=== PATIENT | male | born 1970 | race Caucasian/White ===

== ENCOUNTER 2023-06-03 10:41 | Emergency (ER) | payer MEDICAID, OTHER ==
[~2023-06-03] VITALS: Ht 193 cm; Wt 100.0 kg
[2023-06-03] MEDS ORDERED: SODIUM CHLORIDE 0.9% 1,000 ML IV ONE (12:15)
[2023-06-03 13:20] LABS: Basophils # (auto) 0 10 ^3/uL (0-0.2); Basophils % (auto) 0.5 % (0.0-2.0); Eosinophils # (auto) 0 10 ^3/uL (0-0.8); Eosinophils % (auto) 0.3 % (0.0-7.0); Hematocrit 51.6 % (41.0-53.0); Hemoglobin 17.6 g/dL (13.5-17.5); Lymphocytes # (auto) 1.2 10 ^3/uL (0.4-5.4); Lymphocytes % (auto) 13.1 % (10.0-50.0); Mean Corpuscular Hemoglobin 30.8 pg (28.0-32.0); Mean Corpuscular Hgb Conc. 34.1 g/dL (32.0-36.0); Mean Corpuscular Volume 90.3 fL (80.0-100.0); Monocytes # (auto) 1.2 10 ^3/uL (0-1.3); Monocytes % (auto) 12.9 % (0.0-12.0); Neutrophils # (auto) 6.7 10 ^3/uL (1.6-8.6); Neutrophils % (auto) 73.2 % (37.0-80.0); Red Blood Cells 5.71 10^6/uL (4.5-5.90); Red Cell Distribution Width 13.4 % (11.8-14.3); White Blood Cell 9.2 10^3/uL (4.4-10.8)
[2023-06-03 13:33] LABS: Albumin 3.6 g/dL (3.4-5.0); Calcium 9.1 mg/dL (8.5-10.1); Potassium 4.4 mmol/L (3.5-5.1)
[2023-06-03 13:35] LABS: BUN/Creatinine Ratio 17.1 (10.0-20.0)
[2023-06-03 13:57] LABS: Total Protein 8.1 g/dL (6.4-8.2)
[2023-06-03] MEDS ORDERED: ZOFR4T PO (14:00)
[2023-06-03 14:41] VITALS: BP 148/89
== END 2023-06-03 14:48 | disposition home or self-care (01) ==
LOC: ER 10:41
DX: B34.9 Viral infection, unspecified (principal); E86.0 Dehydration; E11.9 Type 2 diabetes mellitus without complications; I10 Essential (primary) hypertension; Z20.822 Contact with and (suspected) exposure to COVID-19
CPT/HCPCS: 36415; 70450; 71046; 80053; 82962; 85025; 87426; 96360; 99284; J7030

== ENCOUNTER 2023-12-16 06:27 | Emergency (ER) | payer MEDICAID ==
[~2023-12-16] VITALS: Ht 182.9 cm; Wt 102.7 kg
[~2023-12-16 06:27] MED LIST: ZOFR4T PO
[2023-12-16] MEDS ORDERED: AZEL0.1S (08:05)
[2023-12-16] MEDS ORDERED: BENZ100C97 PO (08:05)
[2023-12-16] MEDS ORDERED: NABU-72 PO (08:05)
[2023-12-16 08:14] VITALS: BP 135/86; PULSE 107; RESP 16; TEMP 97.8; O2SAT 94
== END 2023-12-16 08:16 | disposition home or self-care (01) ==
LOC: ER 06:27
DX: J06.9 Acute upper respiratory infection, unspecified (principal); B97.89 Other viral agents as the cause of diseases classified elsewhere; R05.9 Cough, unspecified; I10 Essential (primary) hypertension; E11.9 Type 2 diabetes mellitus without complications; Z79.899 Other long term (current) drug therapy
CPT/HCPCS: 71046

== ENCOUNTER 2025-08-03 17:01 | Emergency (ER) | payer OTHER, MEDICAID ==
[~2025-08-03] VITALS: Ht 193 cm; Wt 105.8 kg
[~2025-08-03 17:01] MED LIST changes: +AZEL0.1S; +BENZ100C97 PO; +NABU-72 PO
--- NOTE | 2025-08-03 18:34 | ED.PDOC ---
HPI Comments 55-year-old male presents to the ED chief complaint left great toe injury. Patient states. His left toe injuring the nail states it is mcfp off. Patient states it is left great toe is usually enlarged he notes he did not doing for Erick break anything he just stopped the nail. Patient does have history of diabetes denies fever, chills, nausea, vomiting, or any other known injury. Chief Complaint: Laceration Time Seen by MD: 18:10 Primary Care Provider: FREDA Mcmahon Notes: Nurses Notes, Medications, Allergies Allergies: Coded Allergies: NO KNOWN ALLERGIES (Unverified , 06/03/23) Home Meds Active Scripts Nabumetone (Nabumetone) 500 Mg Tab, 1 TAB PO BID PRN, #20 TAB Prov:SEVERINO HERNANDEZ 12/16/23 Azelastine Hcl (Azelastine Hcl) 0.1 % Spr, 2 SPRAY NA BID, #30 ML 5 Refills Prov:SEVERINO HERNANDEZ 12/16/23 Benzonatate (Benzonatate) 100 Mg Cap, 1 CAP PO TID PRN, #30 CAP Prov:SEVERINO HERNANDEZ 12/16/23 Ondansetron Odt 4MG Tab (ZOFRAN PO) 4 Mg Tb, 4 MG PO Q8HP PRN for 5 Days, #15 TAB ODT TAB-DISSOLVE IN MOUTH, THEN SWALLOW Prov:JOSE C HIGGINS MD 06/03/23 Information Source: Patient Mode of Arrival: Ambulatory Complexity: Simple Laceration Length (cm): 0 Past Medical History PAST MEDICAL HISTORY: Cancer, DM, HTN Surgical History: Denies all surgeries Family History Family History: Family hx of heart dedrick, Family hx of HTN Social History Smoker: Non-Smoker Alcohol: Occasionally Drugs: Denies Drug Use Lives In: Home All Other Systems: Reviewed and Negative (see hpi) Physical Exam General Appearance: No Apparent Distress, Normal HEENT: Pharynx Normal Neck: Full Range of Motion, Non-Tender Respiratory: Lungs Clear, No Respiratory Distress, Normal Breath Sounds Cardiovascular: No Murmur, Normal Peripheral Pulses, Regular Rate/Rhythm Breast Exam: Deferred Gastrointestinal: Non Tender, Soft Genitalia: Deferred Pelvic: Deferred Rectal: Deferred Extremities: Normal capillary refill, Normal range of motion, No pedal edema Musculoskeletal : Apperance: Normal Neurologic: Alert, No Motor Deficits, Normal Affect, Normal Mood, No Sensory Deficits Cerebellar Function: Normal Reflexes: NOT DONE Skin: Dry, Normal Color, Warm, Wounds (Left 1st toe nail approximate 90% torn off nail bed trace amount of bleeding no noted drainage CSM intact) Lymphatic: No Adenopathy Was a procedure done? Was a procedure done?: Yes Sedation Sedation?: No Informed consent obtained: Yes Nail Removal Nail Removal Location: 1st Toe nail Nail Removal preparation: Saline, by Irrigation Nail Removal Anesthetic: Nothing Wound Complexity: Full Informed Consent: Yes Risks/Benefits/alt. described: Yes (Toenail half way hanging off toenail pulled patient tolerated well with minimal to no pain trace amount of blood dressing bacitracin applied.) Differential diagnosis Generic Laceration: Hematoma, Fracture, Retained Foriegn Body, Neurovascular Injury, Tendon Injury, Laceration, Avulsion X-Ray, Labs, Meds, VS Vital Signs Date Time Temp Pulse Resp B/P (MAP) Pulse Ox O2 Delivery O2 Flow Rate FiO2 08/03/25 18:38 88 16 99 Room Air 0 08/03/25 18:38 98.1 88 16 142/87 (105) 99 98.1 08/03/25 17:04 98.6 92 16 143/80 97 98.6 X-Ray, Labs, Meds, VS Comment Script prophylactic antibiotics advised take medication as prescribed side effects discussed. He is to monitor for symptoms of infection uncontrolled bleeding return to the ER immediately. Follow up with his PCP in 2-3 days as necessary. Time of 1ST Reevaluation: 18:15 Reevaluation 1ST: Unchanged Time of 2ND Reevaluation: 18:53 Reevaluation 2ND: Improved Patient Education/Counseling: Diagnosis, Treatment, Prognosis, Need For Follow Up Family Education/Counseling: No Family Present Departure 1 Departure Time of Disposition: 18:51 Impression: Primary Impression: Injury of toenail of left foot Qualified Codes: S99.922A - Unspecified injury of left foot, initial encounter Disposition: HOME / SELF CARE / HOMELESS Condition: Stable e-Prescriptions Amoxicillin & Pot Clavulanate (AUGMENTIN TABLET) 875 Mg Tb 875 MG PO BID for 5 Days, #10 TAB Prov: OJ ALVAREZ 08/03/25 Discharged With: Self Critical Care Note Critical Care Time?: No Stability Stability form required: No OJ ALVAREZ Aug 03, 2025 18:34
[2025-08-03 18:38] VITALS: BP 142/87; PULSE 88; RESP 16; TEMP 98.1; O2SAT 99
[2025-08-03] MEDS ORDERED: AUG875T PO (18:52)
== END 2025-08-03 19:05 | disposition home or self-care (01) ==
LOC: ER 17:01
DX: S99.822A Other specified injuries of left foot, initial encounter (principal); I10 Essential (primary) hypertension; E11.9 Type 2 diabetes mellitus without complications; Z79.899 Other long term (current) drug therapy; X58.XXXA Exposure to other specified factors, initial encounter; Y93.89 Activity, other specified; Y92.89 Other specified places as the place of occurrence of the external cause; Y99.8 Other external cause status
CPT/HCPCS: 11730